=== PATIENT | female | born 1945 | race African-American/Black ===

== ENCOUNTER → 2017-04-28 | Outpatient (CLI) | payer OTHER, MEDICARE ==
--- NOTE | 2017-04-28 11:51 | RAD ---
DATE: 04/28/2017 EXAM: DIGITAL SCREEN BILAT W/CAD HISTORY: Routine screening COMPARISON: 04/20/2016 This study was interpreted with the benefit of Computerized Aided Detection (CAD). The breast parenchyma shows scattered fibroglandular densities. Breast parenchyma level B. FINDINGS: No new or enlarging breast densities are seen. Benign type calcifications are again noted. No suspicious microcalcifications have developed. IMPRESSION: Stable mammograms without evidence of malignancy. BI-RADS CATEGORY: 2 BENIGN FINDING(S) RECOMMENDED FOLLOW-UP: 12M 12 MONTH FOLLOW-UP PQRS compliance statement: Patient information was entered into a reminder system with a target due date for the next mammogram. Mammography is a sensitive method for finding small breast cancers, but it does not detect them all and is not a substitute for careful clinical examination. A negative mammogram does not negate a clinically suspicious finding and should not result in delay in biopsying a clinically suspicious abnormality. "Our facility is accredited by the [employer] Mammography [employer]."
== END | disposition home or self-care (01) ==
LOC: MAMMO 09:24
PROVIDERS: ATTEND Specialist
DX: Z12.31 Encounter for screening mammogram for malignant neoplasm of breast (principal)
CPT/HCPCS: G0202; 77067

== ENCOUNTER → 2018-04-30 | Outpatient (CLI) | payer OTHER ==
--- NOTE | 2018-04-30 11:59 | RAD ---
DATE: 04/30/2018 EXAM: MAMMO WHITNEY SCREENING BILATERAL HISTORY: Routine screening. COMPARISON: Previous mammogram from 2017 and 2016 This study was interpreted with the benefit of Computerized Aided Detection (CAD). FINDINGS: Breast Density: SCATTERED The breast parenchyma shows scattered fibroglandular densities. Breast parenchyma level B. The skin and nipples are within normal limits. No suspicious calcifications, spiculated mass or area of architectural distortion. Stable focal asymmetry in the anterior retroareolar left breast. IMPRESSION: No mammographic evidence of malignancy. Stable mammogram. BI-RADS CATEGORY: 2 BENIGN FINDING(S) RECOMMENDED FOLLOW-UP: 12M 12 MONTH FOLLOW-UP PQRS compliance statement: Patient information was entered into a reminder system with a target due date for the next mammogram. Mammography is a sensitive method for finding small breast cancers, but it does not detect them all and is not a substitute for careful clinical examination. A negative mammogram does not negate a clinically suspicious finding and should not result in delay in biopsying a clinically suspicious abnormality. "Our facility is accredited by the [employer] Mammography [employer]."
== END | disposition home or self-care (01) ==
LOC: MAMMO 09:01
PROVIDERS: ATTEND Internal Medicine
DX: Z12.31 Encounter for screening mammogram for malignant neoplasm of breast (principal)
CPT/HCPCS: 77063; 77067

== ENCOUNTER 2018-09-04 07:52 | Emergency (ER) | payer MEDICARE, OTHER ==
[~2018-09-04] VITALS: Ht 157.5 cm; Wt 62.1 kg
[2018-09-04 08:25] VITALS: BP 147/71
--- NOTE | 2018-09-04 08:38 | PHYS DOC ---
Adult General Chief Complaint Chief Complaint: FOOT INJURY PAIN HPI HPI Patient is a 72 year old female who presents with states the 4 AM this morning she was walking over to her computer her house and she just lotion and upper legs and feet and she slipped and fell hurting her left outer foot and ankle. She rates her pain a 5 out of 10 and states is nonradiating. States it is aching and sharp in quality. Review of Systems Review of Systems Constitutional: Denies fever or chills [] Eyes: Denies change in visual acuity, redness, or eye pain [] HENT: Denies nasal congestion or sore throat [] Respiratory: Denies cough or shortness of breath [] Cardiovascular: No additional information not addressed in HPI [] GI: Denies abdominal pain, nausea, vomiting, bloody stools or diarrhea [] : Denies dysuria or hematuria [] Musculoskeletal: Denies back pain. Left foot and Left ankle joint pain [] Integument: Denies rash or skin lesions [] Neurologic: Denies headache, focal weakness or sensory changes [] All other systems were reviewed and found to be within normal limits, except as documented in this note. Current Medications Current Medications Current Medications Medications (Trade) Dose Ordered Sig/Onel Start Time Stop Time Status Last Admin Dose Admin Acetaminophen/ Hydrocodone Bitart (Lortab 5/325) 1 tab 1X ONCE 09/04/18 09:15 09/04/18 09:16 DC 09/04/18 08:52 1 TAB Allergies Allergies Allergies Coded Allergies Type Severity Reaction Last Updated Verified Penicillins Allergy Unknown 09/04/18 Yes Sulfa (Sulfonamide Antibiotics) Allergy Unknown 09/04/18 Yes Physical Exam Physical Exam Constitutional: Well developed, well nourished, no acute distress, non-toxic appearance. [] HENT: Normocephalic, atraumatic, bilateral external ears normal, oropharynx moist, no oral exudates, nose normal. [] Eyes: PERRLA, EOMI, conjunctiva normal, no discharge. [] Neck: Normal range of motion, no tenderness, supple, no stridor. [] Cardiovascular:Heart rate regular rhythm, no murmur [] Lungs & Thorax: Bilateral breath sounds clear to auscultation [] Abdomen: Bowel sounds normal, soft, no tenderness, no masses, no pulsatile masses. [] Skin: Warm, dry, no erythema, no rash. [] Back: No tenderness, no CVA tenderness. [] Extremities: Left foot tenderness, no cyanosis, no clubbing, ROM intact, no edema. [] Neurologic: Alert and oriented X 3, normal motor function, normal sensory function, no focal deficits noted. [] Psychologic: Affect normal, judgement normal, mood normal. [] Current Patient Data Vital Signs Vital Signs Date Time Temp Pulse Resp B/P (MAP) Pulse Ox O2 Delivery O2 Flow Rate FiO2 09/04/18 08:25 98.2 85 16 147/71 (96) 100 Room Air 98.2 EKG EKG [] Radiology/Procedures Radiology/Procedures Left foot, Left ankle Impressions: [address] [id number] IMAGING REPORT Signed PATIENT: GANESH DENNIS ACCOUNT: [id number] : 1945 LOCATION: ER AGE: 72 SEX: F EXAM STATUS: REG ER ORD. PHYSICIAN: BEVERLY GERONIMO APRN REASON: fall, pain lateral side of left ankle PROCEDURE: ANKLE LEFT 3V EXAM: 1. 3 views left ankle 2. 3 views left foot DATE: 09/04/2018 8:27 AM INDICATION: fall, pain lateral side of left foot COMPARISON: No Prior FINDINGS: Transverse lucency through the base of the fifth metatarsal consistent with nondisplaced fracture. In addition there is a subtle lucency extending perpendicular to the trabecula of the posterior aspect of the calcaneus suspicious for nondisplaced fracture. Hallux valgus with hallux MTP joint degenerative changes. Diffusely decreased bone mineral density. IMPRESSION: 1. Nondisplaced fifth metatarsal base fracture. 2. Subtle lucency through the posterior calcaneus suspicious for nondisplaced fracture however this can be correlated with patient's symptoms. 3. 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 PHYSICIAN: BEVERLY GERONIMO APRN REASON: Possible Calcaneous fracture PROCEDURE: CT LOWER EXTREMITY WO LEFT Examination: CT LOWER EXTREMITY WO LEFT History: Possible Calcaneous fracture
, pain Comparison/Correlation: Left foot and ankle x-ray examinations 09/04/2018 Findings: Axial images of the left foot were obtained. Transverse fracture involving fifth metatarsal base is nondisplaced. Minimal intra-articular extension medially is present. First metatarsophalangeal joint degenerative remodeling is present. Subtle nondisplaced fracture involving the fourth metatarsal proximal metaphysis lateral cortex is present. Osteopenia is present. No calcaneal fracture identified. Soft tissues are unremarkable. Ankle joint is unremarkable. Impression: Nondisplaced fifth metatarsal basilar fracture. No calcaneal fracture. Advanced first metatarsophalangeal joint degenerative remodeling. PQRS Compliance Statement: One or more of the following individualized dose reduction techniques were utilized for this examination: 1. Automated exposure control 2. Adjustment of the mA and/or kV according to patient size 3. Use of iterative reconstruction technique Electronically signed by: Heath Smith MD (09/04/2018 9:50 AM) [id number] DICTATED and SIGNED BY: HEATH SMITH MD DATE: 09/04/18 0943 Course & Med Decision Making Course & Med Decision Making Patient is a 72 year old female who presents with states the 4 AM this morning she was walking over to her computer her house and she just lotion and upper legs and feet and she slipped and fell hurting her left outer foot and ankle. She rates her pain a 5 out of 10 and states is nonradiating. States it is aching and sharp in quality. Alert and oriented. Skin pink warm and dry. Pedal pulses strong and present. There is no swelling of the affected extremity. Patient has slight movement to the ankle joints into her toes but states it hurts too badly to move them. To palpation there is only pain to the outer anterior foot right above the fourth and fifth toe and over towards the outer foot. There is no bruising, swelling, abrasion, laceration to foot. 0910: Left foot and Left ankle xray shows 1. Nondisplaced fifth metatarsal base fracture. 2. Subtle lucency through the posterior calcaneus suspicious for nondisplaced fracture however this can be correlated with patient's symptoms. 3. 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 I have ordered a CT lower extremity since xray is suspicious for a calcaneus fracture. 1020: CT lower extremity shows Nondisplaced fifth metatarsal basilar fracture. No calcaneal fracture. Advanced first metatarsophalangeal joint degenerative remodeling. Patient will be placed in a postop shoe and follow-up with orthopedic as soon as possible. Dragon Disclaimer Dragon Disclaimer This electronic medical record was generated, in whole or in part, using a voice recognition dictation system. Departure Departure Impression: Primary Impression: Fracture of fifth metatarsal bone Disposition: HOME, SELF-CARE Condition: STABLE Referrals: STEVE IRVIN MD (PCP) SJ MCNAIR II, MD Patient Instructions: Metatarsal Fracture, Undisplaced Additional Instructions: Follow up with orthopedics as soon as possible. Use ice and elevation to help with pain. Take medication as prescribed. Scripts Hydrocodone/Apap 5-325 (NORCO 5-325 TABLET) 1 Each Tablet 1 TAB PO PRN Q6HRS PRN for PAIN, #10 TAB 0 Refills Prov: BEVERLY GERONIMO APRN 09/04/18 Problem Qualifiers Primary Impression: Fracture of fifth metatarsal bone Encounter type: initial encounter Fracture type: closed Fracture alignment : nondisplaced Laterality: left Qualified Codes: S92.355A - Nondisplaced fracture of fifth metatarsal bone, left foot, initial encounter for closed fracture BEVERLY GERONIMO APRN Sep 04, 2018 08:38
--- NOTE | 2018-09-04 09:08 | RAD ---
EXAM: 1. 3 views left ankle 2. 3 views left foot DATE: 09/04/2018 8:27 AM INDICATION: fall, pain lateral side of left foot COMPARISON: No Prior FINDINGS: Transverse lucency through the base of the fifth metatarsal consistent with nondisplaced fracture. In addition there is a subtle lucency extending perpendicular to the trabecula of the posterior aspect of the calcaneus suspicious for nondisplaced fracture. Hallux valgus with hallux MTP joint degenerative changes. Diffusely decreased bone mineral density. IMPRESSION: 1. Nondisplaced fifth metatarsal base fracture. 2. Subtle lucency through the posterior calcaneus suspicious for nondisplaced fracture however this can be correlated with patient's symptoms. 3. 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
[2018-09-04] MEDS ORDERED: HYDROcodone/APAP 5/325MG 1 TAB TABLET PO ONE (09:15)
--- NOTE | 2018-09-04 09:54 | RAD ---
Examination: CT LOWER EXTREMITY WO LEFT History: Possible Calcaneous fracture
, pain Comparison/Correlation: Left foot and ankle x-ray examinations 09/04/2018 Findings: Axial images of the left foot were obtained. Transverse fracture involving fifth metatarsal base is nondisplaced. Minimal intra-articular extension medially is present. First metatarsophalangeal joint degenerative remodeling is present. Subtle nondisplaced fracture involving the fourth metatarsal proximal metaphysis lateral cortex is present. Osteopenia is present. No calcaneal fracture identified. Soft tissues are unremarkable. Ankle joint is unremarkable. Impression: Nondisplaced fifth metatarsal basilar fracture. No calcaneal fracture. Advanced first metatarsophalangeal joint degenerative remodeling. PQRS Compliance Statement: One or more of the following individualized dose reduction techniques were utilized for this examination: 1. Automated exposure control 2. Adjustment of the mA and/or kV according to patient size 3. Use of iterative reconstruction technique Electronically signed by: Heath Fairchild MD (09/04/2018 9:50 AM) [id number]
[2018-09-04] MEDS ORDERED: HYDR-3164 PO (10:33)
== END 2018-09-04 10:47 | disposition home or self-care (01) ==
LOC: ER 07:52
DX: S92.355A Nondisplaced fracture of fifth metatarsal bone, left foot, initial encounter for closed fracture (principal); Z88.0 Allergy status to penicillin; Z88.2 Allergy status to sulfonamides; W01.0XXA Fall on same level from slipping, tripping and stumbling without subsequent striking against object, initial encounter; Y93.89 Activity, other specified; Y92.89 Other specified places as the place of occurrence of the external cause; Y99.8 Other external cause status
CPT/HCPCS: 73610; 73630; 73700; 99284

== ENCOUNTER 2018-12-19 08:57 | Day surgery (SDC) | payer MEDICARE, OTHER ==
--- NOTE | 2018-12-19 06:38 | HP ---
ADMIT DATE: HISTORY OF PRESENT ILLNESS: The patient is known to me and has been followed for breast pathology and thyroid problem. She now has recently been examined and found to have umbilical hernia, which she did not have prior to this. PAST MEDICAL HISTORY: Shows normal childhood diseases. I think, she has had hypertension, has had a thyroid biopsy for benign thyroid mass and has also had two of the breast biopsies for breast masses that were all benign. ALLERGIES: The patient is allergic to PENICILLIN AND SULFA, otherwise has no allergies. FAMILY HISTORY: Noncontributory. SOCIAL HISTORY: She does have one child, had 1 stillborn and 1 child who lived____. She does not smoke, drink or use illicit drugs. REVIEW OF SYSTEMS: Negative. She has no pain at the umbilicus, but she has noticed this increasing mass what she used to have is larger____. PHYSICAL EXAMINATION: GENERAL: Shows an alert female in no acute distress. HEAD, EYES, EARS, NOSE AND THROAT: Grossly normal. NECK: Supple. Trachea was in the midline. Thyroid gland cannot really be palpated well, though she did have a mass that had been biopsied. CHEST: Clear bilaterally to auscultation. HEART: Had a rate of 68 beats per minute, which is regular with no murmurs, heaves, friction rubs or thrills. ABDOMEN: Soft with no masses noted. There was no protuberance, tenderness, guarding or other difficulties. She did have a mass at the umbilicus, which at this point fairly reduce as she lie down. It was more obvious when she stood up. PELVIC: Not done. IMPRESSION: 1. Thyroid mass. 2. Hypertension. 3. Umbilical hernia. NKECHI DE JESUS MD DR: CODI/alfred JOB#: [id number] / [id number] ALONDRA
[~2018-12-19 08:57] MED LIST: AMLO1TAB2 PO; ASPI-630 PO; CALC-98 PO; HYDR-3164 PO; HYDROmorphone 2 MG/ML VIAL IV PRN; LIDOCAINE 1% PF 2 ML VIAL. ID PRN; MORPHINE SULFATE 2 MG/ML VIAL. IV PRN; ONDANSETRON PF 4 MG/2 ML VIAL. IV PRN; PROCHLORPERAZINE 10 MG/2 ML VIAL. IV PRN; fentaNYL PF VIAL 100 MCG/2 ML VIAL IV PRN
[2018-12-19] MEDS ORDERED: LIDOCAINE 2% PF 5 ML VIAL. ONE (09:27)
[2018-12-19] MEDS ORDERED: PROPOFOL 0 ML IV ONE (09:27)
[2018-12-19] MEDS ORDERED: ONDANSETRON PF 4 MG/2 ML VIAL. ONE (09:27)
[2018-12-19] MEDS ORDERED: DEXAMETHASONE SOD PHOS 4 MG/ML VIAL ONE ×2 (09:27→14:05)
[2018-12-19] MEDS ORDERED: ROCURONIUM 50 MG/5 ML VIAL. ONE (09:27)
[2018-12-19] MEDS ORDERED: fentaNYL PF VIAL 100 MCG/2 ML VIAL ONE (09:28)
[2018-12-19] MEDS ORDERED: CLINDAMYCIN 900MG PREMIX 50 ML IV ONE (09:30)
[2018-12-19] MEDS ORDERED: CLINDAMYCIN 600MG PREMIX 50 ML IV ONE (09:30)
[2018-12-19] MEDS ORDERED: BUPIVAC MPF-EPI 0.5%-1:200000 30 ML VIAL. ONE (09:37)
[2018-12-19] MEDS: IV RINGERS,LACTATED 1000ML 1,000 ML IV SCH ×2 (09:49→13:53)
[2018-12-19 10:07] LABS: BASO % 1 % (0-3); EOS # 0.1 x10^3/uL (0.0-0.7); EOS % 1 % (0-3); HEMATOCRIT 43.2 % (36.0-47.0); HEMOGLOBIN 14.3 g/dL (12.0-15.5); LYMPH % 28 % (24-48); MEAN CORPUSCULAR HEMOGLOBIN 28 pg (25-35); MEAN CORPUSCULAR HGB CONC 33 g/dL (31-37); MEAN CORPUSCULAR VOLUME 84 fL (79-100); MONO # 0.5 x10^3/uL (0.0-1.1); MONO % 8 % (0-9); NEUT # 4.6 x10^3uL (1.8-7.7); NEUT % 64 % (31-73); PLATELET COUNT 295 x10^3/uL (140-400); RED BLOOD COUNT 5.17 x10^6/uL (3.50-5.40); RED CELL DISTRIBUTION WIDTH 14.7 % (11.5-14.5); WHITE BLOOD COUNT 7.3 x10^3/uL (4.0-11.0)
--- NOTE | 2018-12-19 10:10 | PDOC ---
SURGICAL PROGRESS NOTE Subjective No real change in dictated H&P. Now remembers having umbilical and nupur- umbilical pain and stinging at times. Also hears it pop when it goes in or out . Now it has been out all the time. Vital Signs Vital Signs Date Time Temp Pulse Resp B/P (MAP) Pulse Ox O2 Delivery O2 Flow Rate FiO2 12/19/18 09:37 97.6 71 18 151/69 99 Room Air 97.6 NKECHI DE JESUS MD Dec 19, 2018 10:10
--- NOTE | 2018-12-19 10:14 | PDOC ---
SURGICAL PROGRESS NOTE Subjective Op Note: Surgeon.......................................................De Jesus Pre op dig...................................................incarcerated umbilical hernia Post op diag................................................same Anesthesia..................................................general Procedure...................................................Repair incarcerated umbilical hernia with mesh Drains........................................................none Blood loss..................................................10cc Fluids........................................................see anesthesia sheet Condition...................................................satisfactory Vital Signs Vital Signs Date Time Temp Pulse Resp B/P (MAP) Pulse Ox O2 Delivery O2 Flow Rate FiO2 12/19/18 09:37 97.6 71 18 151/69 99 Room Air 97.6 NKECHI DE JESUS MD Dec 19, 2018 10:14
[2018-12-19 10:26] LABS: CALCIUM 9.5 mg/dL (8.5-10.1); CREATININE 0.8 mg/dL (0.6-1.0); GFR 84.6; POTASSIUM 3.3 mmol/L (3.5-5.1)
[2018-12-19 10:28] LABS: PROTHROMBIN TIME PATIENT 13.1 SEC (11.7-14.0)
[2018-12-19 10:32] LABS: ALBUMIN 3.9 g/dL (3.4-5.0); ALBUMIN/GLOBULIN RATIO 0.9 (1.0-1.7); TOTAL BILIRUBIN 0.5 mg/dL (0.2-1.0); TOTAL PROTEIN 8.3 g/dL (6.4-8.2)
[2018-12-19] MEDS ORDERED: PHENYLEPHRINE in 0.9% NACL PF 1 MG/10 ML SYRINGE. IV ONE (12:25)
[2018-12-19] MEDS ORDERED: BUPIVAC MPF-EPI 0.5%-1:200000 30 ML VIAL. INJ ONE (12:45)
[2018-12-19] MEDS ORDERED: NEOSTIGMINE METHYLSULFATE 5 MG/5 ML SYRINGE. ONE (13:03)
[2018-12-19] MEDS ORDERED: GLYCOPYRROLATE 1 MG/5 ML VIAL. ONE (13:04)
[2018-12-19] MEDS ORDERED: SEVOFLURANE 61 TO 120 MINUTES. IH ONE (13:27)
[2018-12-19] MEDS ORDERED: PROPOFOL 20 ML IV ONE (13:35)
[2018-12-19] MEDS ORDERED: DEXAMETHASONE SOD PHOS 4 MG/ML VIAL IV ONE (14:10)
[2018-12-19] MEDS ORDERED: oxyCODONE/APAP 7.5/325 1 TAB TABLET PO ONE (14:15)
[2018-12-19] MEDS ORDERED: OXYC1TAB19 PO (14:27)
[2018-12-19 15:30] VITALS: BP 125/61
--- NOTE | 2018-12-20 00:49 | OP ---
DATE OF SURGERY: SURGEON: Malvin De Jesus MD PREOPERATIVE DIAGNOSIS: Incarcerated umbilical hernia. POSTOPERATIVE DIAGNOSIS: Incarcerated umbilical hernia. ANESTHESIA: General. PROCEDURE: Repair of incarcerated umbilical hernia with mesh. TECHNIQUE: Under general anesthesia, the patient was properly prepped and draped in a routine fashion. The umbilicus was seen and noted to have a mass there. We made a supraumbilical incision with a 15 blade following the skin lines and carried it down through the skin. Once we got into the skin, we went around the area, spread the area on either side of the hernia and went around the hernia caudad in the subcutaneous tissues. We then placed a Jules drain there, pulled it up and with rake retractors pulled the inferior portion of the skin down. We used a 15 blade to cut the hernia sac off the umbilicus and luckily did not enter the sac. We then proceeded to open the sac to make certain that there was only fat there and that is all it was. Some of the fat that was adherent to the anterior abdominal wall and peritoneum was pushed away and we then could reduce the hernia. We cut away some of the excess hernia sac. I guess it was a 4-inch Ventralex plug was then placed with a tag there, a piece with the Seprafilm on it, so that there would not be any adhesions against the intra-abdominal contents. We tried to place it in the extraperitoneal area, so that we would not really be going into the peritoneum. We pulled up on this and then placed three #0 Prolene sutures through the fascial defect inferiorly through the mesh near its insertion of the tag and then back out through the superior portion, so that when we tied these the hernia would be closed and the mass would be firmly in the anterior abdominal wall. We did this. We made certain that the patch lay flat against the anterior abdominal wall and we then tied the sutures. The tag had been cut off and all was in place and well. We then anesthetized the fascia and the site of the surgery with 0.5% Marcaine and epinephrine. We irrigated the subcutaneous with saline and then used 4-0 Vicryl to bury the suture knots. We then used 4-0 Vicryl to suture the umbilicus down to the fascia. The deeper tissues were approximated with interrupted 4-0 Vicryl and the skin was closed using a subcuticular 5-0 Vicryl. Sterile Tegaderm dressing was applied and the procedure was terminated. The blood loss was probably less than 3 to 4 mL. Fluids given can be obtained from the anesthesia sheet. No drains were used. Condition of the patient was satisfactory as she is returned to the recovery room. MALVIN DE JESUS MD DR: CODI/alfred JOB#: [id number] / [id number] ALONDRA
== END 2018-12-19 16:08 | disposition home or self-care (01) ==
LOC: SURG 08:57
PROVIDERS: ATTEND Specialist
DX: K42.0 Umbilical hernia with obstruction, without gangrene (principal); I10 Essential (primary) hypertension; Z79.01 Long term (current) use of anticoagulants; Z88.1 Allergy status to other antibiotic agents; Z88.0 Allergy status to penicillin; Z88.8 Allergy status to other drugs, medicaments and biological substances
CPT/HCPCS: 36415; 49587; 80053; 85025; 85610; A7015; C1781; J1100; J2001; J2370; J2405; J2704; J2710; J3010; J3490

== ENCOUNTER → 2019-01-07 | Outpatient (CLI) | payer MEDICARE, OTHER ==
[2018-12-19 15:30] VITALS: BP 125/61
[~2019-01-07] MED LIST changes: +CONTRAST GIVEN. MC PRN; -HYDROmorphone 2 MG/ML VIAL IV PRN; +IOHEXOL 240 MG/ML 50ML VIAL. PO ONE; +IOHEXOL 300 MG/ML 100ML VIAL. IV ONE; -LIDOCAINE 1% PF 2 ML VIAL. ID PRN; -MORPHINE SULFATE 2 MG/ML VIAL. IV PRN; -ONDANSETRON PF 4 MG/2 ML VIAL. IV PRN; +OXYC1TAB19 PO; -PROCHLORPERAZINE 10 MG/2 ML VIAL. IV PRN; -fentaNYL PF VIAL 100 MCG/2 ML VIAL IV PRN
--- NOTE | 2019-01-07 11:07 | RAD ---
Examination: CT ABD PELV W/ORAL IV CONTRAST History: Abdominal mass, recent hernia repair Comparison/Correlation: None Findings: Axial images of the abdomen and pelvis were obtained following oral and IV contrast. Sagittal and coronal reformatted images were provided. Delayed postcontrast images through the liver also provided. Minimal linear discoid atelectasis or scarring involves right lung base. Subtle nodular appearance of the posterior right lung basilar pleural is evident. Significant right coronary arterial calcification noted. Numerous hepatic cysts are present. Largest of these is at the right hepatic lobe measuring up to 16.4 cm x 13.4 cm x 20.5 cm longitudinal. High density foci involving the right hepatic dome are present with associated multiple low-attenuation cystic appearing structures. No suspicious enhancement of these lesions on postcontrast imaging in the delayed phase identified. Correlate with previous intervention. Alternatively, these may represent dystrophic calcifications. Calcific densities in the periphery of one of the cystic structures at the right hepatic lobe posteriorly appears be present. Gallbladder appears be delineated and unremarkable but correlation with surgical history is recommended. Spleen, pancreas, and left adrenal gland are normal. Right renal cyst is present. Right renal longitudinal axis lies within the axial plane. Right extrarenal pelvis is noted. No ascites or pelvic free fluid. No extraluminal gas or bowel obstruction. Urinary bladder is unremarkable. No enlarged abdominal or pelvic lymph nodes. Impression: Numerous hepatic cysts. No suspicious process. Correlate with prior exams if available to assess stability. PQRS Compliance Statement: One or more of the following individualized dose reduction techniques were utilized for this examination: 1. Automated exposure control 2. Adjustment of the mA and/or kV according to patient size 3. Use of iterative reconstruction technique Electronically signed by: Heath Fairchild MD (01/07/2019 11:04 AM) [facility]
== END | disposition home or self-care (01) ==
LOC: CT 07:29
PROVIDERS: ATTEND Specialist
DX: N28.1 Cyst of kidney, acquired (principal); K76.89 Other specified diseases of liver; R18.8 Other ascites; I25.10 Atherosclerotic heart disease of native coronary artery without angina pectoris
CPT/HCPCS: 74177; Q9966; Q9967

== ENCOUNTER → 2019-05-02 | Outpatient (CLI) | payer MEDICARE, OTHER ==
[~2019-05-02] MED LIST changes: -CONTRAST GIVEN. MC PRN; -IOHEXOL 240 MG/ML 50ML VIAL. PO ONE; -IOHEXOL 300 MG/ML 100ML VIAL. IV ONE
--- NOTE | 2019-05-03 10:08 | RAD ---
DATE: 05/02/2019 8:05 AM EXAM: MAMMO WHITNEY SCREENING BILATERAL HISTORY: Screening mammogram COMPARISON: April 30, 2018 and April 28, 2017. Bilateral CC and MLO views of the breasts were performed. Bilateral breast tomosynthesis was performed in CC and MLO projections. This study was interpreted with the benefit of Computerized Aided Detection (CAD). FINDINGS: Breast Density: SCATTERED The breast parenchyma shows scattered fibroglandular densities. Breast parenchyma level B No suspicious masses, microcalcifications or architectural distortion is present to suggest malignancy in either breast. The visualized axillae are unremarkable. IMPRESSION: No mammographic evidence of malignancy. BI-RADS CATEGORY: 1 NEGATIVE RECOMMENDED FOLLOW-UP: 12M 12 MONTH FOLLOW-UP Annual screening mammography is recommended, unless clinically indicated sooner based on symptoms or change in physical exam. PQRS compliance statement: Patient information was entered into a reminder system with a target due date one year for the next mammogram. Mammography is a sensitive method for finding small breast cancers, but it does not detect them all and is not a substitute for careful clinical examination. A negative mammogram does not negate a clinically suspicious finding and should not result in delay in biopsying a clinically suspicious abnormality. "Our facility is accredited by the [employer] Mammography Program."
== END | disposition home or self-care (01) ==
LOC: MAMMO 07:49
PROVIDERS: ATTEND Specialist
DX: Z12.31 Encounter for screening mammogram for malignant neoplasm of breast (principal)
CPT/HCPCS: 77063; 77067

== ENCOUNTER → 2020-05-18 | Outpatient (CLI) | payer MEDICARE, OTHER ==
--- NOTE | 2020-05-18 18:18 | RAD ---
Examination: Left diagnostic mammogram. INDICATION: 74-year-old woman recalled from screening for calcifications in the upper-outer left breast. She does report a history of previous benign surgical biopsies in both breasts. COMPARISON: 05/02/2019 and 05/04/2020 screening mammograms. TECHNIQUE: Magnification views of the left breast in the CC, MLO and true lateral projections were obtained. FINDINGS: The cluster of calcifications in the upper outer left breast especially on the true lateral view appear to show fine linear branching forms. This is suspicious. Although benign etiologies such as fat necrosis can appear similar, biopsy is indicated. IMPRESSION: Suspicious calcifications in the upper outer left breast. Stereotactic left breast biopsy is recommended. BI-RADS Category 4 Findings suspicious for malignancy. Stereotactic biopsy recommended Discussed with patient. I also discussed this in person with her referring physician Dr. Burnette at approximately 12:30 PM on May 18, 2020. Electronically signed by: Shweta Hastings MD (05/18/2020 6:15 PM) [id number]
== END ==
LOC: MAMMO 09:38
PROVIDERS: ATTEND Specialist
DX: R92.8 Other abnormal and inconclusive findings on diagnostic imaging of breast (principal)
CPT/HCPCS: 77065; G0279; 77061

== ENCOUNTER → 2020-06-11 | Outpatient (CLI) | payer MEDICARE, OTHER ==
[~2020-06-11] MED LIST changes: +OXYC1TAB15 PO
[2020-06-11 11:00] LABS: BASO % 1 % (0-3); EOS # 0.1 x10^3/uL (0.0-0.7); EOS % 1 % (0-3); HEMATOCRIT 40.1 % (36.0-47.0); HEMOGLOBIN 13.2 g/dL (12.0-15.5); LYMPH # 1.9 x10^3/uL (1.0-4.8); LYMPH % 24 % (24-48); MEAN CORPUSCULAR HEMOGLOBIN 27 pg (25-35); MEAN CORPUSCULAR HGB CONC 33 g/dL (31-37); MEAN CORPUSCULAR VOLUME 82 fL (79-100); MONO # 0.7 x10^3/uL (0.0-1.1); MONO % 8 % (0-9); NEUT # 5.4 x10^3/uL (1.8-7.7); NEUT % 67 % (31-73); PLATELET COUNT 305 x10^3/uL (140-400); RED BLOOD COUNT 4.92 x10^6/uL (3.50-5.40); WHITE BLOOD COUNT 8.2 x10^3/uL (4.0-11.0)
[2020-06-11 11:15] LABS: ALBUMIN 3.8 g/dL (3.4-5.0); ALBUMIN/GLOBULIN RATIO 0.8 (1.0-1.7); CALCIUM 9.3 mg/dL (8.5-10.1); CREATININE 0.8 mg/dL (0.6-1.0); GFR 84.4; POTASSIUM 3.3 mmol/L (3.5-5.1); TOTAL BILIRUBIN 0.4 mg/dL (0.2-1.0); TOTAL PROTEIN 8.4 g/dL (6.4-8.2)
[2020-06-11 11:16] LABS: PROTHROMBIN TIME PATIENT 13.5 SEC (11.7-14.0)
== END ==
LOC: SURGPAT 09:42
PROVIDERS: ATTEND Specialist
DX: Z01.812 Encounter for preprocedural laboratory examination (principal); N63.20 Unspecified lump in the left breast, unspecified quadrant; R79.1 Abnormal coagulation profile; Z20.828 Contact with and (suspected) exposure to other viral communicable diseases
CPT/HCPCS: 80053; 85025; 85610; U0003

== ENCOUNTER → 2020-06-16 | Day surgery (SDC) | payer MEDICARE, OTHER ==
[~2020-06-16] VITALS: Ht 157.5 cm; Wt 61.6 kg
[~2020-06-16] MED LIST changes: +CLINDAMYCIN 900MG PREMIX 50 ML IV PRN; +DEXAMETHASONE SOD PHOS 4 MG/ML VIAL ONE; +HYDROmorphone 2 MG/ML VIAL IV PRN; +IV RINGERS,LACTATED 1000ML 1,000 ML IV SCH; +LIDOCAINE 1% PF 2 ML VIAL. ID PRN; +METHYLENE BLUE 0.5% 10ml AMPULE. IJ ONE; +METHYLENE BLUE 0.5% 10ml AMPULE. ONE; +MORPHINE SULFATE 2 MG/ML VIAL. IV PRN; +ONDANSETRON PF 4 MG/2 ML VIAL. IV PRN; +ONDANSETRON PF 4 MG/2 ML VIAL. ONE; +PHENYLEPHRINE in 0.9% NACL PF 1 MG/10 ML SYRINGE. IV ONE; +PROCHLORPERAZINE 10 MG/2 ML VIAL. IV PRN; +PROPOFOL 10 MG/ML (20ML) VIAL. IV ONE; +SEVOFLURANE 61 TO 120 MINUTES. IH ONE; +fentaNYL PF VIAL 100 MCG/2 ML VIAL IV PRN; +fentaNYL PF VIAL 100 MCG/2 ML VIAL ONE; +oxyCODONE/APAP 5/325 1 TAB TABLET PO ONE
--- NOTE | 2020-06-16 10:38 | PDOC ---
SURGICAL PROGRESS NOTE DATE: 06/16/20 TIME: 10:37 No change in dictated H&P. Vital Signs Vital Signs Date Time Temp Pulse Resp B/P (MAP) Pulse Ox O2 Delivery O2 Flow Rate FiO2 06/16/20 08:06 97.2 76 18 154/74 100 Room Air 97.2 Justicifation of Admission Dx: Justifications for Admission: Justification of Admission Dx: Yes NKECHI DE JESUS MD Jun 16, 2020 10:38
--- NOTE | 2020-06-16 10:41 | PDOC ---
SURGICAL PROGRESS NOTE DATE: 06/16/20 TIME: 10:38 Op Note: Surgeon..........................................Mariposa Pre op diag......................................suspicious microcalcification left breast Pos top diag....................................same Anesthesia......................................general Procedure.......................................excision left breast msss with needle loc. Drains..............................................none Blood loss.......................................10cc Fluids.............................................see anesthesi sheet Condition........................................satisfactory. Vital Signs Vital Signs Date Time Temp Pulse Resp B/P (MAP) Pulse Ox O2 Delivery O2 Flow Rate FiO2 06/16/20 08:06 97.2 76 18 154/74 100 Room Air 97.2 Justicifation of Admission Dx: Justifications for Admission: Justification of Admission Dx: Yes NKECHI DE JESUS MD Jun 16, 2020 10:40
--- NOTE | 2020-06-16 11:30 | RAD ---
Left breast surgical specimen radiograph INDICATION: Left breast calcifications recommended for biopsy. Patient elected surgical excisional biopsy. COMPARISON: Left breast needle localization mammogram of earlier the same day. FINDINGS: Single view surgical specimen radiograph shows the localizing wire in the surgical specimen with calcifications present projecting over what would be position 7.5 -M and 9-M on the grid (although the lettered rows only extend up to L on the grid). IMPRESSION: Surgical specimen contains calcifications and the localizing wire. Discussed with Dr. Burnette by telephone at 11:23 AM on 06/16/2020
--- NOTE | 2020-06-16 12:02 | DISCH ---
DISCHARGE INSTRUCTIONS Condition on Discharge Condition on Discharge: Stable Activity After Discharge Activity Instructions for Disc: Avoid exertion Diet after Discharge Additional Diet Restrictions: as pre op Wound Incision Care Other wound/incision instructi: keep dry for 72 hours...remove dressing prn Follow-Up Follow up with: Dr. cano in 2-3 weeks NKECHI CANO MD Jun 16, 2020 12:02
[2020-06-16 13:30] VITALS: BP 122/46
--- NOTE | 2020-06-16 16:29 | RAD ---
Examination: 1. Left breast mammographically guided needle localization. 2. Left post procedure mammogram. INDICATION: 74-year-old woman with mildly suspicious left breast calcifications recommended for biops y. Patient elected surgical excisional biopsy. Needle localization requested for presurgical planning . COMPARISON: Left digital diagnostic mammogram of 05/18/2020 TECHNIQUE AND FINDINGS: Informed consent was obtained and an appropriate procedural pause observed. Using standard sterile te chnique, mammographic imaging guidance and local anesthesia, a 5 cm needle was advanced into the left breast from a craniocaudal approach targeting the cluster of calcifications in the upper-outer quadr ant. Following satisfactory confirmation of needle tip positioning, 0.2 mL of methylene blue was injected through the needle to halley the area of calcifications targeted for needle localization. Thereafter, a hookwire was threaded through the needle and the needle removed following satisfactory positioning of the wire. Postprocedure mammogram showed satisfactory positioning of the hook wire relative to the targeted pierre cifications. Discussed in person with patient's surgeon Dr. Burnette at the time of procedure completio n. IMPRESSION: Successful left breast mammographically guided needle localization of left breast upper outer quadran t calcifications with confirmation of satisfactory wire placement on postprocedure mammogram. No appa rent complications. Electronically signed by: Shweta Hastings MD (06/16/2020 4:27 PM) [id number]
--- NOTE | 2020-06-17 02:00 | OP ---
DATE OF SURGERY: 06/16/2020 SURGEON: Dr. De Jesus PREOPERATIVE DIAGNOSIS: Suspicious microcalcifications, left breast. POSTOPERATIVE DIAGNOSIS: Suspicious microcalcifications, left breast. ANESTHESIA: General. PROCEDURE: Excision of suspicious area, left breast via needle localization. It should be noted that the patient was informed about the possibility of stereotactic biopsy, she did not want that emphatically, wanted the area removed as much as possible, therefore she demanded the surgery. TECHNIQUE: Under general anesthesia, the patient was properly prepped and draped in routine fashion. The guidewire was in the upper outer quadrant of the left breast. I think it went medially and inferiorly as the lesion was sort of behind the nipple. At any rate, we made an incision following the skin lines in the left breast more lateral than normal starting at about the area of the guidewire about an inch below it. We did this so that she would not have a scar if she wore various items revealing the anterior chest wall. We made this as far lateral as possible. As such, we made an incision with a 15 blade, carried down through the skin. We then went over to the guidewire, delivered the guidewire into the wound and using retractors, initially with Paz's and then Lay's we divided the tissue around the guidewire. We grabbed the guidewire and breast tissue with a clamp, pulled it and then slowly divided all of the tissue around the guidewire from the patient. The breast tissue was fairly dense as we got deep and we went wide around the tip of the guidewire taking tissue, especially anterior, which is where the most of the calcifications were. We went widely around the guidewire totally and sent this fairly large specimen to x-ray. The radiologist informed me that 2 suspicious areas that he thought were in the specimen had been removed from the patient and no further surgery was necessary. As such, we inspected the area, luckily there was no bleeding and we then used 3-0 Vicryl after the wound was irrigated with saline to approximate the breast tissue deeply, 4-0 for the more superficial tissue approximation and then used 5-0 subcuticular Vicryl to close the skin. The procedure was now terminated as there was no bleeding and all was well and a sterile dressing was applied. The blood loss was probably about 8-10 mL. Fluids given can be obtained from the anesthesia sheet. No drains were used. The condition of the patient is satisfactory as she has returned to the recovery room. NKECHI DE JESUS MD DR: CODI/alfred JOB#: [id number] / [id number]
--- NOTE | 2020-06-19 15:20 | PATHOLOGY ---
[facility] Accession Number: [id number] . 01 Material submitted: . breast - LEFT BREAST MASS. Modifiers: left . 02 Diagnosis: Breast tissue, wire-localized left breast mass excision: - Ancient fibroadenomas, with focal associated calcifications. - Proliferative fibrocystic changes with focal florid ductal epithelial hyperplasia. . (JPM:mml; 06/18/2020) [facility] 06/18/2020 1635 Local . 02 Comment: There appear to be a few closely aggregated nodules of ancient fibroadenoma, which together measure up to approximately 1.5 cm. There is no atypia or evidence of malignancy. . (JPM:mml; 06/18/2020) . 02 Electronically signed: . Vaughn Carmen MD, Pathologist NPI- [id number] . 01 Gross description: . The specimen is received in formalin, labeled "Macy Vernon, left breast mass". Received is a 25 g unoriented segment of bright yellow lobulated tissue measuring 8.7 x 4.0 x 1.2 cm in greatest dimensions. There is a localization wire present. The surgical margin is inked. The specimen is sectioned into 23 pieces to reveal a possible previous biopsy site, with residual blue dye, measuring 1.3 x 1.0 x 0.3 cm. There is a focus of white fibrous tissue in this area, however, a distinct mass is not identified. This area is located in slices 7 through 10. The remainder of the specimen displays bright yellow, lobulated cut surfaces with a slight amount of scattered possible fibrous tissue. The specimen is submitted representatively as follows: . A1-A4 entire possible previous biopsy site (slices 7 through 10) A5-A15 alternating sections submitted from slice 1 through slice 22. . The cold ischemic time is 9 minutes. The total formalin fixation time is 36 hours and 20 minutes. (CAA; 06/17/2020) QAC/QAC 06/17/2020 1703 Local . 02 Pathologist provided ICD-10: D24.2, N60.12, N62 . 02 CPT . 511853 Specimen Comment: A courtesy copy of this report has been sent to [phone] Specimen Comment: Report sent to Performed at: 01 [facility] [address] [place] [address] [id number] MD Jacek Owens MD Phone: [phone] Performed at: 02 [facility] [address] [place] [address] [id number] MD Vaughn Carmen MD Phone: [phone]
== END | disposition home or self-care (01) ==
LOC: SURG 07:32
PROVIDERS: ATTEND Specialist
DX: R92.8 Other abnormal and inconclusive findings on diagnostic imaging of breast (principal); D24.2 Benign neoplasm of left breast; N60.12 Diffuse cystic mastopathy of left breast; I10 Essential (primary) hypertension; E11.9 Type 2 diabetes mellitus without complications; E78.00 Pure hypercholesterolemia, unspecified; M19.90 Unspecified osteoarthritis, unspecified site; M81.0 Age-related osteoporosis without current pathological fracture; F17.210 Nicotine dependence, cigarettes, uncomplicated; Z90.710 Acquired absence of both cervix and uterus; Z98.890 Other specified postprocedural states; Z79.82 Long term (current) use of aspirin; Z79.899 Other long term (current) drug therapy; Z88.0 Allergy status to penicillin; Z88.2 Allergy status to sulfonamides; Z88.8 Allergy status to other drugs, medicaments and biological substances
CPT/HCPCS: 19281; 19301; 76098; 77065; J1100; J2370; J2405; J2704; J3010; J3490; Q9968

== ENCOUNTER → 2020-10-08 | Outpatient (CLI) | payer MEDICARE, OTHER ==
[2020-06-16 13:30] VITALS: BP 122/46
[~2020-10-08] MED LIST changes: -CLINDAMYCIN 900MG PREMIX 50 ML IV PRN; +CONTRAST GIVEN. MC PRN; -DEXAMETHASONE SOD PHOS 4 MG/ML VIAL ONE; -HYDROmorphone 2 MG/ML VIAL IV PRN; -IV RINGERS,LACTATED 1000ML 1,000 ML IV SCH; -LIDOCAINE 1% PF 2 ML VIAL. ID PRN; -METHYLENE BLUE 0.5% 10ml AMPULE. IJ ONE; -METHYLENE BLUE 0.5% 10ml AMPULE. ONE; -MORPHINE SULFATE 2 MG/ML VIAL. IV PRN; -ONDANSETRON PF 4 MG/2 ML VIAL. IV PRN; -ONDANSETRON PF 4 MG/2 ML VIAL. ONE; -PHENYLEPHRINE in 0.9% NACL PF 1 MG/10 ML SYRINGE. IV ONE; -PROCHLORPERAZINE 10 MG/2 ML VIAL. IV PRN; -PROPOFOL 10 MG/ML (20ML) VIAL. IV ONE; -SEVOFLURANE 61 TO 120 MINUTES. IH ONE; -fentaNYL PF VIAL 100 MCG/2 ML VIAL IV PRN; -fentaNYL PF VIAL 100 MCG/2 ML VIAL ONE; -oxyCODONE/APAP 5/325 1 TAB TABLET PO ONE
[2020-10-08 09:51] LABS: CREATININE 0.7 mg/dL (0.6-1.0); GFR 98.2
[2020-10-08] MEDS: IOHEXOL 300 MG/ML 100ML VIAL. IV ONE (10:13)
[2020-10-08] MEDS: IOHEXOL 240 MG/ML 50ML VIAL. PO ONE (10:13)
--- NOTE | 2020-10-08 18:31 | RAD ---
Exam: CT abdomen/pelvis with intravenous contrast Indication: Liver cyst Comparison: CT abdomen and pelvis 01/07/2019 Technique: Helical CT imaging performed of the abdomen and pelvis after the intravenous administratio n of 75 mL Omnipaque 300 contrast. Sagittal and coronal reformats were obtained. One or more of the following individualized dose reduction techniques were utilized for this examinat ion: 1. Automated exposure control 2. Adjustment of the mA and/or kV according to patient size 3. Use of iterative reconstruction technique. Findings: Lower chest: Lung bases are clear. The heart is normal in size. Liver: There are multiple large hepatic cysts. Some of these have decreased in size. For example, the largest cyst is in the right hepatic lobe and measures 16.1 x 2.5 cm, previously 15.3 x 13.9 cm. A c yst in the left hepatic lobe now measures 5.3 cm in diameter, previously 9.9 cm. There are coarse pierre cifications within some of the cysts at the dome, unchanged. A few thin cut desiccation is along some of the turner of the cysts in the right hepatic lobe are also unchanged. There is no definite new les ion. Gallbladder/Biliary Tree: The gallbladder is not visualized. Bile ducts are normal. Pancreas: Normal. Spleen: Normal. Adrenal Glands: Normal. Kidneys/Ureters/Bladder: There are bilateral hypoattenuating renal lesions measuring up to 3 cm on th e right and 2 cm on the left. Some of these have slightly greater than fluid density, likely complex cyst. Kidneys are normal in size. No hydronephrosis. Ureters and bladder are normal. Reproductive Organs: Uterus is surgically absent. No adnexal mass. Stomach, small bowel, and colon: Stomach, small bowel, and colon are unremarkable. Vasculature: No aortic aneurysm. Moderate calcified aortoiliac atherosclerosis. Lymph Nodes: No lymphadenopathy. Peritoneum and retroperitoneum: No free fluid or free air. Bones: No acute osseous abnormality. Mild anterolisthesis at L4-L5 resulting in a small disc bulge. Impression: 1. Multiple large hepatic cysts, some of which have decreased in size. Some of these are mildly comp licated with dystrophic calcifications. No new or enlarging liver lesion. 2. Unchanged minimally complicated renal cysts. Electronically signed by: Petra Kramer MD (10/08/2020 6:28 PM) [id number]
== END ==
LOC: CT 11:40
PROVIDERS: ATTEND Internal Medicine
DX: K76.89 Other specified diseases of liver (principal); N28.1 Cyst of kidney, acquired
CPT/HCPCS: 36415; 74177; 82565; 84520; Q9966; Q9967

== ENCOUNTER → 2021-05-24 | Outpatient (CLI) | payer MEDICARE, OTHER ==
[2020-06-16 13:30] VITALS: BP 122/46
[~2021-05-24] MED LIST changes: -CONTRAST GIVEN. MC PRN
--- NOTE | 2021-05-24 14:28 | RAD ---
INDICATION: 75 years of age asymptomatic female patient presents for screening mammography. TECHNIQUE: Full field craniocaudal and mediolateral oblique images of both breasts were obtained usi ng digital technique with tomosynthesis and also analyzed with computer-aided detection software. COMPARISON: Prior mammographic imaging 05/04/2020 05/02/2019 04/30/2018 04/28/2017 BREAST COMPOSITION: Category B: There are scattered fibroglandular densities. FINDINGS: Benign calcifications are present. The parenchymal pattern appears stable. No suspicious masses, microcalcifications or architectural distortion is present to suggest malignanc y in either breast. Postsurgical changes are seen within the superior, lateral left breast. The visualized axillae are unremarkable. IMPRESSION: No mammographic evidence of malignancy. RECOMMENDATION: Annual screening mammography is recommended, unless clinically indicated sooner based on symptoms or change in physical exam. BIRADS 2: BENIGN This study was interpreted with the benefit of Computerized Aided Detection (CAD). Patient information is entered into the reminder system with a target due date for the next screening mammogram. Mammography is the most sensitive method for finding small breast cancers, but it does not detect the m all and is not a substitute for careful clinical examination. A negative mammogram does not negate a clinically suspicious finding and should not result in delay in biopsying a clinically suspicious a bnormality. "Our facility is accredited by the [employer] Mammography Program." Electronically signed by: Po Troy MD (05/24/2021 2:26 PM) [id number]
== END ==
LOC: MAMMO 09:08
PROVIDERS: ATTEND Internal Medicine
DX: Z12.31 Encounter for screening mammogram for malignant neoplasm of breast (principal)
CPT/HCPCS: 77063; 77067

== ENCOUNTER → 2021-10-11 | Outpatient (CLI) | payer MEDICARE, OTHER ==
[2020-06-16 13:30] VITALS: BP 122/46
[~2021-10-11] MED LIST changes: +CONTRAST GIVEN. MC PRN; +IOHEXOL 240 MG/ML 50ML VIAL. PO ONE; +IOHEXOL 300 MG/ML 100ML VIAL. IV ONE
[2021-10-11 09:52] LABS: CREATININE 0.9 mg/dL (0.6-1.0); GFR 73.3
--- NOTE | 2021-10-11 17:03 | RAD ---
CT ABDOMEN+PELVIS W History: Cystic disease of the liver. Comparison: CT abdomen and pelvis 10/08/2020, 01/07/2019. Technique: CT of the abdomen and pelvis with oral and intravenous contrast. Findings: The lung bases are clear. There is heavy coronary artery calcification. No pleural or pericardial eff usion. Redemonstrated enlarged liver with low numerous cystic lesions throughout the liver. The largest dale ures 16.7 x 11.5 12.0 cm in the right hepatic lobe. This demonstrates slightly increased attenuation versus comparison, consistent with proteinaceous or hemorrhagic content. At the right hepatic dome th ere are heterogeneous calcifications, suspect dystrophic calcification at site of prior cysts, possib le postprocedural change. Numerous additional hepatic cysts are again present. The gallbladder is com pressed. The pancreas and spleen are unremarkable. Multiple bilateral renal cysts. The right kidney i s inferiorly displaced by the right hepatic lobe. No hydronephrosis or nephrolithiasis. The bladder is within normal limits. Postsurgical changes from hysterectomy. The stomach and small bowel are within normal limits. Normal appendix. The colon is unremarkable. No intra-abdominal free air or free fluid. No adenopathy. Moderate aortoiliac calcification without a neurysm. Soft tissues and osseous structures are unremarkable. Impression: 1. Redemonstrated liver is enlarged by numerous hepatic cysts measuring up to approximately 17 cm di ameter. Findings similar to prior year comparison. 2. Bilateral renal cysts. No hydronephrosis. 3. No acute findings. ------ Exposure: One or more of the following individualized dose reduction techniques were utilized for thi s examination: 1. Automated exposure control 2. Adjustment of the mA and/or kV according to patient size 3. Use of iterative reconstruction technique. Electronically signed by: Hira Lau MD (10/11/2021 5:01 PM) [id number]
== END ==
LOC: CT 09:04
PROVIDERS: ATTEND Internal Medicine
DX: R16.0 Hepatomegaly, not elsewhere classified (principal); N28.1 Cyst of kidney, acquired; I70.0 Atherosclerosis of aorta; Q44.6 Cystic disease of liver; Z90.710 Acquired absence of both cervix and uterus
CPT/HCPCS: 36415; 74177; 82565; 84520; Q9966; Q9967